=== PATIENT | female | born 1965 | race African-American/Black ===

== ENCOUNTER 2016-06-04 09:35 | Observation (INO) | payer OTHER ==
[~2016-06-04] VITALS: Ht 154.9 cm; Wt 65.0 kg
[~2016-06-04 09:35] MED LIST: ALLE24TA PO; ASPI325T PO; BUPR100CR PO; XANA0.5T PO
[2016-06-04 09:44] VITALS: BP 105/55; PULSE 85; RESP 20; TEMP 98.2
[2016-06-04 09:45] VITALS: O2SAT 99
[2016-06-04] MEDS ORDERED: BUPR100CR PO (09:47)
[2016-06-04] MEDS ORDERED: ALPR.5 PO (09:47)
[2016-06-04] MEDS ORDERED: SODIUM CHLORIDE 0.9% FLUSH 10 ML FLUSH IVF PRN (10:00)
[2016-06-04 10:05] LABS: AUTOMATED NEUTROPHIL # 5.8 TH/MM3 (1.8-7.7); BASOPHIL % 0.4 % (0.0-2.0); EOSINOPHIL # 0.1 TH/MM3 (0-0.4); EOSINOPHIL % 1.5 % (0.0-4.0); HEMATOCRIT 31.9 % (35.0-46.0); LYMPH % 12.3 % (9.0-44.0); LYMPHOCYTE # 0.9 TH/MM3 (1.0-4.8); MEAN CELL VOLUME 72.8 FL (80.0-100.0); MEAN CORPUSCULAR HEMOGLOBIN 23.2 PG (27.0-34.0); MEAN CORPUSCULAR HGB CONC 31.9 % (32.0-36.0); NEUT % 78.8 % (16.0-70.0); PLATELET COUNT 123 TH/MM3 (150-450); RED BLOOD COUNT 4.38 MIL/MM3 (4.00-5.30); RED CELL DISTRIBUTION WIDTH 17.7 % (11.6-17.2); WHITE BLOOD COUNT 7.4 TH/MM3 (4.0-11.0)
--- NOTE | 2016-06-04 10:13 | PD ---
HPI Chief Complaint: Chest Pain Time Seen by Provider: 10:06 Travel History International Travel<30 days: No Contact w/Intl Traveler<30days: No Traveled to known affect area: No History of Present Illness HPI 50-year-old female with previous history of TIA, presents to the ER today because she states that she started having chest pains which is through the chest on both sides starting last night on his own, worse with deep breaths and movements, currently a 7 out of 10. She has had some mild shortness of breath. She denies any fevers, coughing, or any other symptoms. She denies any injuries. Modifying Factors: None Associated Signs & Symptoms: Chest pain, mild shortness of breath Risk Factors: None PFSH Past Medical History Asthma: Yes Anxiety: Yes Depression: Yes Cardiovascular Problems: Yes Cerebrovascular Accident: Yes Diminished Hearing: No Endocrine: No Genitourinary: No Immune Disorder: No Musculoskeletal: No Neurologic: Yes Psychiatric: Yes Reproductive: No Respiratory: Yes (CHRONIC BRONCHITIS) Immunizations Current: Yes Tetanus Vaccination: > 5 Years ?: Not Tubal Ligation: Yes Past Surgical History Abdominal Surgery: Yes (BOWEL RESECTION DURING HYSTERECTOMY) Appendectomy: Yes Section: Yes (X2) Cholecystectomy: Yes Genitourinary Surgery: Yes (CYSTOSCOPY) Gynecologic Surgery: Yes (LEFT BREAST BIOPSY) Hysterectomy: Yes Joint Replacement: Yes (LEFT HIP REPLACEMENT) Other Surgery: Yes Social History Alcohol Use: Yes (RARELY) Tobacco Use: No Substance Use: No Allergies-Medications (Allergen,Severity, Reaction): Coded Allergies: Contrast Media (Verified Allergy, Severe, hives, 06/04/16) Reported Meds & Prescriptions Reported Meds & Active Scripts Active Aspirin 325 Mg Tab (Aspirin) 325 Mg Tab 325 Mg PO DAILY 0 Days Reported Xanax (Alprazolam) 0.5 Mg Tab 0.5 Mg PO Q6H PRN Wellbutrin SR 12 HR (Bupropion HCl) 100 Mg Tab 100 Mg PO Q12HR Wellbutrin Sr (Bupropion HCl) 100 Mg Tabcr 100 Mg PO BID Xanax 0.5 mg (Alprazolam) Alprazolam 0.5 mg Tab 1 Tab PO Q6H PRN Niharika-D 24 Hour Allergy (Fexofenadine-Pseudoephedrine) 24 Hour Tab 1 Tab PO DAILY Review of Systems Except as stated in HPI: all other systems reviewed are Neg Physical Exam Narrative GENERAL: Well-developed middle age -[place] female patient currently not in acute distress. Awake and oriented 3. SKIN: Focused skin assessment warm/dry. HEAD: Atraumatic. Normocephalic. EYES: Pupils equal and round. No scleral icterus. No injection or drainage. ENT: No nasal bleeding or discharge. Mucous membranes pink and moist. NECK: Trachea midline. No JVD. CARDIOVASCULAR: Regular rate and rhythm. No murmur appreciated. Pulses are present and equal bilaterally. RESPIRATORY: No accessory muscle use. Clear to auscultation. Breath sounds equal bilaterally. No crackles, wheezes, or rhonchi. GASTROINTESTINAL: Abdomen soft, non-tender, nondistended. Hepatic and splenic margins not palpable. MUSCULOSKELETAL: No obvious deformities. No clubbing. No cyanosis. No edema. NEUROLOGICAL: Awake and alert. No obvious cranial nerve deficits. Motor grossly within normal limits. Normal speech. PSYCHIATRIC: Appropriate mood and affect; insight and judgment normal. Data Data Last Documented VS Vital Signs Date Time Temp Pulse Resp B/P Pulse Ox O2 Delivery O2 Flow Rate FiO2 06/04/16 09:45 99 06/04/16 09:44 98.2 85 20 105/55 Orders Electrocardiogram (06/04/16 09:49) Complete Blood Count With Diff (06/04/16 09:49) Basic Metabolic Panel (Bmp) (06/04/16 09:49) Ckmb (Isoenzyme) Profile (06/04/16 09:49) Troponin I (06/04/16 09:49) Chest, Single Ap (06/04/16 09:49) Iv Access Insert/Monitor (06/04/16 09:49) Ecg Monitoring (06/04/16 09:49) Oxygen Administration (06/04/16 09:49) Oximetry (06/04/16 09:49) Comprehensive Metabolic Panel (06/04/16 09:50) B-Type Natriuretic Peptide (06/04/16 09:50) Act Partial Throm Time (Ptt) (06/04/16 09:50) Prothrombin Time / Inr (Pt) (06/04/16 09:50) Electrocardiogram (06/04/16 09:50) Sodium Chloride 0.9% Flush (Ns Flush) (06/04/16 10:00) D-Dimer (06/04/16 10:13) Ventilation & Perfusion Scan (06/04/16 11:16) Labs Laboratory Tests Test 06/04/16 09:50 White Blood Count 7.4 TH/MM3 Red Blood Count 4.38 MIL/MM3 Hemoglobin 10.2 GM/DL Hematocrit 31.9 % Mean Corpuscular Volume 72.8 FL Mean Corpuscular Hemoglobin 23.2 PG Mean Corpuscular Hemoglobin 31.9 % Concent Red Cell Distribution Width 17.7 % Platelet Count 123 TH/MM3 Mean Platelet Volume 9.1 FL Neutrophils (%) (Auto) 78.8 % Lymphocytes (%) (Auto) 12.3 % Monocytes (%) (Auto) 7.0 % Eosinophils (%) (Auto) 1.5 % Basophils (%) (Auto) 0.4 % Neutrophils # (Auto) 5.8 TH/MM3 Lymphocytes # (Auto) 0.9 TH/MM3 Monocytes # (Auto) 0.5 TH/MM3 Eosinophils # (Auto) 0.1 TH/MM3 Basophils # (Auto) 0.0 TH/MM3 CBC Comment AUTO DIFF Differential Comment AUTO DIFF CONFIRMED Acanthocytes OCC Prothrombin Time 10.9 SEC Prothromb Time International 1.0 RATIO Ratio Activated Partial 23.7 SEC Thromboplast Time D-Dimer Quantitative (PE/DVT) 0.87 MG/L FEU Sodium Level 140 MEQ/L Potassium Level 4.1 MEQ/L Chloride Level 106 MEQ/L Carbon Dioxide Level 27.0 MEQ/L Anion Gap 7 MEQ/L Blood Urea Nitrogen 12 MG/DL Creatinine 0.93 MG/DL Estimat Glomerular Filtration 78 ML/MIN Rate Random Glucose 110 MG/DL Calcium Level 8.6 MG/DL Total Creatine Kinase 49 U/L Troponin I LESS THAN 0.02 NG/ML MDM Medical Decision Making Medical Screen Exam Complete: Yes Emergency Medical Condition: Yes Medical Record Reviewed: Yes Interpretation(s) EKG shows NSR, no ST elevation or depression, and no arrhythmias. No significant T-wave inversions. Laboratory Tests Test 06/04/16 09:50 Hemoglobin 10.2 GM/DL (11.6-15.3) Hematocrit 31.9 % (35.0-46.0) Mean Corpuscular Volume 72.8 FL (80.0-100.0) Mean Corpuscular Hemoglobin 23.2 PG (27.0-34.0) Mean Corpuscular Hemoglobin 31.9 % Concent (32.0-36.0) Red Cell Distribution Width 17.7 % (11.6-17.2) Platelet Count 123 TH/MM3 (150-450) Neutrophils (%) (Auto) 78.8 % (16.0-70.0) Lymphocytes # (Auto) 0.9 TH/MM3 (1.0-4.8) Acanthocytes OCC (NORMAL) Activated Partial 23.7 SEC Thromboplast Time (24.3-30.1) D-Dimer Quantitative (PE/DVT) 0.87 MG/L FEU (0.00-0.50) Estimat Glomerular Filtration 78 ML/MIN (>89) Rate Random Glucose 110 MG/DL (74-106) Troponin I LESS THAN 0.02 NG/ML (0.02-0.05) Last 24 hours Impressions Lung Scan-VQ Nuclear Medicine 06/04/16 1116 Signed Impressions: Service Date/Time: Saturday, June 04, 2016 13:02 - CONCLUSION: 1. Low probability of pulmonary embolism Mook Bedoya MD Chest X-Ray 06/04/16 0949 Signed Impressions: Service Date/Time: Saturday, June 04, 2016 10:07 - CONCLUSION: No acute disease. Flaco Monroy MD FACR Differential Diagnosis Chest pains, shortness of breathACS versus dysrhythmias versus costochondritis versus pneumonia versus PE versus CHF Narrative Course EKG and chest x-ray as well as VQ scan did not reveal any signs of acute processes. Cardiac enzymes are negative. Symptoms are fairly atypical of coronary chest pain. However, I am concerned about the left arm discomfort as well and my plan would be to admit the patient for further evaluation of chest pains. Diagnosis Primary Impression: Atypical chest pain Admitting Information Admitting Physician Requests: Admit Venita Guerrero MD Jun 04, 2016 10:13
[2016-06-04 10:14] LABS: APTT (PATIENT) 23.7 SEC (24.3-30.1); HEMO FLAGS AUTO DIFF; PROTHROMBIN TIME - PATIENT 10.9 SEC (9.8-11.6)
[2016-06-04 10:19] LABS: ANION GAP 7 MEQ/L (5-15); BLOOD UREA NITROGEN 12 MG/DL (7-18); CHLORIDE 106 MEQ/L (98-107); GLOMERULAR FILTRATION RATE 78 ML/MIN (>89); POTASSIUM 4.1 MEQ/L (3.5-5.1); SODIUM (NA) 140 MEQ/L (136-145)
[2016-06-04 10:24] LABS: CREATINE KINASE 49 U/L (26-192)
--- NOTE | 2016-06-04 10:24 | RADRPT ---
EXAM DATE/TIME: 06/04/2016 10:07 [facility] COMPARISON: CHEST SINGLE AP, June 10, 2015, 7:13. INDICATIONS : Chest pain MEDICAL HISTORY : None. SURGICAL HISTORY : None. ENCOUNTER: Initial ACUITY: 2 days PAIN SCORE: 4/10 LOCATION: Bilateral chest FINDINGS: A single view of the chest demonstrates the lungs to be symmetrically aerated without evidence of mas s, infiltrate or effusion. The cardiomediastinal contours are unremarkable. Osseous structures are intact. CONCLUSION: No acute disease. Flaco Monroy MD FACR on June 04, 2016 at 10:22 Board Certified Radiologist. This report was verified electronically.
[2016-06-04 10:55] LABS: ACANTHOCYTES OCC (NORMAL); SCAN/DIFF AUTO DIFF CONFIRMED
--- NOTE | 2016-06-04 13:25 | RADRPT ---
EXAM DATE/TIME: 06/04/2016 13:02 [facility] COMPARISON: CHEST SINGLE AP, June 04, 2016, 10:07. INDICATIONS : Shortness of breath with chest pain for one day. DOSE: 8.6 mCi Tc99m MAA IV 0.90 mCi Tc99m DTPA aerosol MEDICAL HISTORY : Sickle cell disease. Asthma. SURGICAL HISTORY : Hysterectomy. Cholecystectomy. section. ENCOUNTER: Initial ACUITY: 1 day PAIN SCALE: 4/10 LOCATION: chest TECHNIQUE: Following five minutes of tidal breathing of DTPA aerosol, planar images of the lungs were performed in eight projections. The patient was then injected with MAA, and eight-view perfusion scan was perf ormed. FINDINGS: There is a homogeneous pattern of aerosol delivery to the periphery of both lungs. No focal ventilat ory defects are seen. The perfusion lung scan demonstrates a homogenous pattern of uptake in both lungs. No segmental or s ubsegmental defects are seen. CONCLUSION: 1. Low probability of pulmonary embolism Mook Bedoya MD on June 04, 2016 at 13:23 Board Certified Radiologist. This report was verified electronically.
[2016-06-04 13:58] LABS: ANION GAP 6 MEQ/L (5-15); AST (GOT) 17 U/L (15-37); BICARBONATE 27.5 MEQ/L (21.0-32.0); BLOOD UREA NITROGEN 12 MG/DL (7-18); CHLORIDE 107 MEQ/L (98-107); GLOMERULAR FILTRATION RATE 79 ML/MIN (>89); POTASSIUM 4.1 MEQ/L (3.5-5.1); SODIUM (NA) 140 MEQ/L (136-145)
[2016-06-04 14:02] LABS: ALKALINE PHOSPHATASE 77 U/L (45-117); ALT (GPT) 18 U/L (10-53); TOTAL BILIRUBIN ADULT 1.6 MG/DL (0.2-1.0)
[2016-06-04] MEDS ORDERED: ONDANSETRON HCL 4 MG/2 ML VIAL IV PRN (15:00)
[2016-06-04] MEDS ORDERED: SODIUM CHLORIDE 0.9% FLUSH 10 ML FLUSH IV FLUSH PRN (15:00)
[2016-06-04] MEDS ORDERED: NITROGLYCERIN 0.4 MG SL 25 TABS/BTL SL PRN (15:00)
[2016-06-04] MEDS ORDERED: ACETAMINOPHEN 500 MG CPLT PO PRN (15:00)
[2016-06-04 17:10] VITALS: BP 135/71; PULSE 76; RESP 20; TEMP 98.3
[2016-06-04] MEDS: MORPHINE SULFATE 4 MG/ML INJ IV PUSH PRN ×2 (17:13→21:02)
[2016-06-04] MEDS: SODIUM CHLORIDE 0.9% FLUSH 10 ML FLUSH IV FLUSH SCH (17:14)
[2016-06-04 18:42] LABS: CREATINE KINASE 34 U/L (26-192)
--- NOTE | 2016-06-04 19:22 | HHI.HP ---
HPI Primary Care Physician Thomas Liang MD Chief Complaint Chest pain History of Present Illness 50-year-old female with history of anxiety, depression, TIA presents to emergency room for further evaluation of generalize chest discomfort. Onset last night at midnight. Location "shoulder to shoulder generalize pain. Characterized as throbbing with "flashes of pain." No associated symptoms of shortness of breath, nausea, or diaphoresis. Hurt to breathe. 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 No known precipitating or relieving factors. Review of Systems General: No fatigue,weakness, fever, chills, or recent illness. Has been in her general state of health. HEENT: No POWER, no vision changes, no nasal congestion or drainage, no dysphasia CV: As stated above. Currently to have chest discomfort. Stating "medications provided in ER have worn out." No palpitations, intermittent leg pain, dizziness RESP: No SOB, cough, wheeze, recent URI GI: No nausea, vomiting, bowel changes, diarrhea, constipation, pain, distention , melena, blood in the stool. No change in appetite, no unintentional weight gain or weight loss : No dysuria, urgency, frequency EXT: No lower leg edema, no paraesthesias MS: No discomfort or change in ROM NEURO: No change in memory, dizziness, difficulty with balance, LOC, motor/ sensory deficits PSYCH: History of anxiety and depression, no suicidal ideation. No situational stress. SKIN: No rashes, no concerning lesions Past Family Social History Allergies: Coded Allergies: Contrast Media (Verified Allergy, Severe, hives, 06/04/16) Past Medical History Anxiety, depression, TIA Past Surgical History Appendectomy, , bowel resection status post "nicking" of her bowel during . Lumpectomy Reported Medications Reported Meds & Active Scripts Active Aspirin 325 Mg Tab (Aspirin) 325 Mg Tab 325 Mg PO DAILY 0 Days Reported Xanax (Alprazolam) 0.5 Mg Tab 0.5 Mg PO Q6H PRN Wellbutrin SR 12 HR (Bupropion HCl) 100 Mg Tab 100 Mg PO Q12HR Wellbutrin Sr (Bupropion HCl) 100 Mg Tabcr 100 Mg PO BID Xanax 0.5 mg (Alprazolam) Alprazolam 0.5 mg Tab 1 Tab PO Q6H PRN Niharika-D 24 Hour Allergy (Fexofenadine-Pseudoephedrine) 24 Hour Tab 1 Tab PO DAILY Active Ordered Medications Current Medications Medications (Trade) Dose Ordered Sig/Abram Route Start Time Stop Time Status Last Admin (NS Flush) 2 ml UNSCH PRN IV FLUSH 06/04/16 15:00 (NS Flush) 2 ml BID IV FLUSH 06/04/16 21:00 06/04/16 17:14 (Tylenol) 500 mg Q4H PRN PO 06/04/16 15:00 (Zofran Inj) 4 mg Q6H PRN IV 06/04/16 15:00 (Nitrostat Sl) 0.4 mg Q5M PRN SL 06/04/16 15:00 (Aspirin) 325 mg DAILY PO 06/05/16 09:00 (Morphine Inj) 4 mg Q3H PRN IV PUSH 06/04/16 17:00 06/04/16 17:13 Family History Noncontributory for early onset cardiovascular disease Social History No known diabetes, hypertension, or hyperlipidemia. Lifelong nonsmoker. Denies any alcohol or illegal drug use. Past cardiac testing No formal past cardiac testing Physical Exam Vital Signs Vital Signs Date Time Temp Pulse Resp B/P Pulse Ox O2 Delivery O2 Flow Rate FiO2 06/04/16 17:10 98.3 76 20 135/71 06/04/16 09:45 99 06/04/16 09:45 99 06/04/16 09:44 98.2 85 20 105/55 Physical Exam GENERAL: Alert WN, WD, NAD, pleasant, female HEAD: NC, AT EYES: Sclera clear, conjunctiva without injection, pupils equal and round ENT: Mucous membranes pink and moist NECK: Supple, no masses, trachea midline CV: RRR, without murmur, rub, gallop, no JVD, S1-S2 no S3-S4. RESP: Clear lungs throughout bilateral, no crackles, wheeze, rhonchi, symmetrical chest rise, nonlabored, able to speak in full sentences ABD: Soft, NT, ND, no masses, positive bowel tones BACK: No CVAT, no scoliosis EXT: Pulses +24, no dependent edema MS: Normal tone 4 extremities, generalize chest discomfort upon palpation, no obvious deformities, full range of motion NEURO: CN II through CN XII grossly intact, motor strength 5/5, gait WNL PSYCH: A+O 3, pleasant affect, appropriate speech, appropriate mood and affect , insight and judgment SKIN: Normal turgor, normal texture, no lesions, no rashes, brisk cap refill, even hair distribution Laboratory Laboratory Tests Test 06/04/16 06/04/16 06/04/16 09:50 17:15 17:25 White Blood Count 7.4 Red Blood Count 4.38 Hemoglobin 10.2 Hematocrit 31.9 Mean Corpuscular Volume 72.8 Mean Corpuscular Hemoglobin 23.2 Mean Corpuscular Hemoglobin 31.9 Concent Red Cell Distribution Width 17.7 Platelet Count 123 Mean Platelet Volume 9.1 Neutrophils (%) (Auto) 78.8 Lymphocytes (%) (Auto) 12.3 Monocytes (%) (Auto) 7.0 Eosinophils (%) (Auto) 1.5 Basophils (%) (Auto) 0.4 Neutrophils # (Auto) 5.8 Lymphocytes # (Auto) 0.9 Monocytes # (Auto) 0.5 Eosinophils # (Auto) 0.1 Basophils # (Auto) 0.0 CBC Comment AUTO DIFF Differential Comment AUTO DIFF CONFIRMED Acanthocytes OCC Prothrombin Time 10.9 Prothromb Time International 1.0 Ratio Activated Partial 23.7 Thromboplast Time D-Dimer Quantitative (PE/DVT) 0.87 Sodium Level 140 Potassium Level 4.1 Chloride Level 107 Carbon Dioxide Level 27.5 Anion Gap 6 Blood Urea Nitrogen 12 Creatinine 0.92 Estimat Glomerular Filtration 79 Rate Random Glucose 106 Calcium Level 8.8 Total Bilirubin 1.6 Aspartate Amino Transf 17 (AST/SGOT) Alanine Aminotransferase 18 (ALT/SGPT) Alkaline Phosphatase 77 Total Creatine Kinase 49 34 Troponin I LESS THAN 0.02 LESS THAN 0.02 B-Type Natriuretic Peptide 13 Total Protein 6.8 Albumin 3.7 Erythrocyte Sedimentation Rate 6 Result Diagram: 06/04/16 0950 06/04/16 0950 Imaging Last Impressions Lung Scan-V Nuclear Medicine 06/04/16 1116 Signed Impressions: Service Date/Time: Saturday, June 04, 2016 13:02 - CONCLUSION: 1. Low probability of pulmonary embolism Mook Bedoya MD Chest X-Ray 06/04/16 0949 Signed Impressions: Service Date/Time: Wednesday, June 04, 2016 10:07 - CONCLUSION: No acute disease. Flaco Monroy MD FACR Course EKG First EKG normal sinus rhythm, normal axis, no ST or T-segment changes Assessment and Plan Assessment and Plan #1 Chest painadmitted to chest pain center. We'll complete 3 sets of EKGs, cardiac enzymes, and monitored overnight. Was seen and evaluated by Dr. Mook Germain. Will rule out and complete exercise stress test in a.m. #2 Musculoskeletal painmorphine when necessary, sedimentation rate #3 Depressioncontinue home meds Nevaeh Camarena [facility] Jun 04, 2016 19:22
[2016-06-04 20:03] VITALS: BP 127/69; PULSE 73; RESP 16; TEMP 97.8; O2SAT 96
--- NOTE | 2016-06-04 20:08 | EKG ---
Date Performed: 06/04/2016 Time Performed: 09:51:00 PTAGE: 50 years EKG: Sinus rhythm NORMAL ECG Since PREVIOUS TRACING ,the patient is no longer tachycardic PREVIOUS TRACIN06/10/2015 06.57 DOCTOR: Radha Perry Interpretating Date/Time 06/04/2016 20:06:46
[2016-06-04] MEDS: buPROPion HCL 100 MG SUSTAINED RELEASE TAB PO SCH (21:02)
[2016-06-04 22:28] LABS: CREATINE KINASE 47 U/L (26-192)
[2016-06-04 23:27] VITALS: BP 127/63; PULSE 92; RESP 18; TEMP 98.6; O2SAT 97
[2016-06-05] MEDS: MORPHINE SULFATE 4 MG/ML INJ IV PUSH PRN (00:59)
[2016-06-05 02:08] VITALS: PULSE 87
[2016-06-05 03:23] VITALS: BP 110/65; PULSE 82; RESP 18; TEMP 98.4; O2SAT 95
[2016-06-05] MEDS ORDERED: KETOROLAC TROMETHAMINE 30 MG/ML (IVP) VIAL IV PUSH ONE (07:45)
[2016-06-05 07:56] VITALS: BP 137/73; PULSE 85; RESP 18; TEMP 97.8; O2SAT 95
[2016-06-05 08:00] VITALS: PULSE 83
[2016-06-05] MEDS: SODIUM CHLORIDE 0.9% FLUSH 10 ML FLUSH IV FLUSH SCH (08:08)
[2016-06-05] MEDS: buPROPion HCL 100 MG SUSTAINED RELEASE TAB PO SCH (08:29)
[2016-06-05] MEDS ORDERED: ASPIRIN 325 MG TAB PO SCH (09:00)
[2016-06-05 09:08] VITALS: RESP 16
--- NOTE | 2016-06-05 11:21 | HHI.DCPOC ---
Discharge Care Plan Diagnosis: (1) Musculoskeletal chest pain (2) Situational stress Goals to Promote Your Health * To prevent worsening of your condition and complications * To maintain your health at the optimal level Directions to Meet Your Goals Take your medications as prescribed Follow your dietary instruction Follow activity as directed Keep your appointments as scheduled Take your immunizations and boosters as scheduled If your symptoms worsen call your PCP, if no PCP go to Urgent Care Center or Emergency Room Smoking is Dangerous to Your Health. Avoid second hand smoke Call the 24-hour hour crisis hotline for domestic abuse at Nevaeh Camarena Jun 05, 2016 11:21
[2016-06-05] MEDS ORDERED: NAPR500 PO (11:39)
--- NOTE | 2016-06-05 14:00 | TR ---
Date Performed: 06/05/2016 Time Performed: 10:43:45 DOCTOR: Radha Perry DRUG LIST: CLINICAL HISTORY: REASON FOR TEST: REASON FOR ENDING: OBSERVATION: CONCLUSION: Hilario protocol completed. Stopped sec to exceeding target heart rate and leg fatigue . Maximum TX=693 Target HR Achieved=87.0% Total Exercise Time=8:[address]=068/70. No reprod ches t discomfort. Rare PVC. No st t sement changes to sugg ischemia. Great exercise tolerance. Normal bp response. Recovery quick and unremarkable. COMMENTS:
--- NOTE | 2016-06-05 14:02 | EKG ---
Date Performed: 06/05/2016 Time Performed: 08:09:14 PTAGE: 50 years EKG: Sinus rhythm NORMAL ECG PREVIOUS TRACING : 06/04/2016 20.41 Since previous tracing, no significant change noted DOCTOR: Radha Perry Interpretating Date/Time 06/05/2016 13:59:48
--- NOTE | 2016-06-05 14:06 | EKG ---
Date Performed: 06/04/2016 Time Performed: 18:26:19 PTAGE: 50 years EKG: Sinus rhythm NORMAL ECG Since PREVIOUS TRACING , no significant change noted PREVIOUS TRACIN06/04/2016 15.37 DOCTOR: Radha Perry Interpretating Date/Time 06/05/2016 14:02:24
--- NOTE | 2016-06-05 14:07 | EKG ---
Date Performed: 06/04/2016 Time Performed: 15:37:12 PTAGE: 50 years EKG: Sinus rhythm NORMAL ECG Since PREVIOUS TRACING , no significant change noted PREVIOUS TRACIN06/04/2016 09.51 DOCTOR: Radha Perry Interpretating Date/Time 06/05/2016 14:04:21
--- NOTE | 2016-06-09 08:18 | EKG ---
Date Performed: 06/04/2016 Time Performed: 20:41:37 PTAGE: 50 years EKG: Sinus rhythm POSSIBLE RIGHT VENTRICULAR CONDUCTION DELAY BORDERLINE ECG INTERPRETATION BASED ON A DEFAULT AGE OF 42 YEARS NO PREVIOUS TRACING DOCTOR: Mook Germain Interpretating Date/Time 06/09/2016 08:16:02
== END 2016-06-05 12:55 | disposition home or self-care (01) ==
LOC: NEPE 09:35 → HSDI 13:59 → NEDA 15:32 → NEDH 18:44 → NEPFCDU 20:11
PROVIDERS: ADMIT Internal Medicine Cardiovascular Disease; ATTEND Internal Medicine Cardiovascular Disease
DX: R07.9 Chest pain, unspecified (principal); R94.31 Abnormal electrocardiogram [ECG] [EKG]; F32.9 Major depressive disorder, single episode, unspecified; J45.909 Unspecified asthma, uncomplicated; Z86.73 Personal history of transient ischemic attack (TIA), and cerebral infarction without residual deficits
CPT/HCPCS: 71010; 78582; 80048; 80053; 82550; 83880; 84484; 85025; 85379; 85610; 85652; 85730; 93005; 93017; 99285; A9540; A9567; G0378; J1885; J2270

== ENCOUNTER 2017-02-05 02:28 | Emergency (ER) | payer OTHER ==
[~2017-02-05] VITALS: Ht 154.9 cm; Wt 68.0 kg
[~2017-02-05 02:28] MED LIST changes: +ALPR.5 PO; +NAPR500 PO
[2017-02-05 02:32] VITALS: BP 174/83; PULSE 126; RESP 13; TEMP 98; O2SAT 99
[2017-02-05] MEDS ORDERED: ACETAMINOPHEN/HYDROcodone 325 MG/5 MG TAB PO ONE (03:00)
[2017-02-05] MEDS ORDERED: KETOROLAC TROMETHAMINE 60 MG/2 ML (IM) VIAL IM ONE (03:00)
--- NOTE | 2017-02-05 03:01 | PD ---
HPI Chief Complaint: Injury Time Seen by Provider: 02:45 Travel History International Travel<30 days: No Contact w/Intl Traveler<30days: No Traveled to known affect area: No History of Present Illness HPI This is a 51-year-old female who presents for evaluation of left shoulder pain. She reports that 5 days ago she was moving. She reports that while moving she developed some discomfort in her left shoulder which worsened at night. She has been sore in her left shoulder throughout the week. Tonight the pain became progressively worse which prompted evaluation. She describes an aching sensation in her left shoulder which is constant, worse with movement. She tried using ibuprofen at home but symptoms persisted. She denies any new trauma. She denies any chest pain, shortness of breath, fevers or chills, open wounds. She has no other complaints. PFSH Past Medical History Asthma: Yes Anxiety: Yes Depression: Yes Heart Rhythm Problems: No Cardiac Catheterization: No Cardiovascular Problems: No High Cholesterol: No Congestive Heart Failure: No Cerebrovascular Accident: Yes Diabetes: No Diminished Hearing: No Endocrine: No Genitourinary: No Immune Disorder: No Implanted Vascular Access Dvce: Yes Musculoskeletal: No Neurologic: Yes Psychiatric: Yes Reproductive: No Respiratory: Yes (CHRONIC BRONCHITIS) Immunizations Current: Yes Tetanus Vaccination: < 5 Years Influenza Vaccination: Yes ?: Not Tubal Ligation: Yes Past Surgical History Abdominal Surgery: Yes (BOWEL RESECTION DURING HYSTERECTOMY) Appendectomy: Yes Section: Yes (X2) Cholecystectomy: Yes Coronary Artery Bypass Graft: No Genitourinary Surgery: Yes (CYSTOSCOPY) Gynecologic Surgery: Yes (LEFT BREAST BIOPSY) Hysterectomy: Yes (parital) Joint Replacement: Yes (LEFT HIP REPLACEMENT) Other Surgery: Yes Social History Alcohol Use: Yes (RARELY) Tobacco Use: No Substance Use: No Allergies-Medications (Allergen,Severity, Reaction): Coded Allergies: diatrizoate meglumine (Unverified Allergy, Severe, hives, 09/23/16) gadobenic acid (Unverified Allergy, Severe, hives, 09/23/16) gadodiamide (Unverified Allergy, Severe, hives, 09/23/16) gadoteridol (Unverified Allergy, Severe, hives, 09/23/16) iodixanol (Unverified Allergy, Severe, hives, 09/23/16) iohexol (Unverified Allergy, Severe, hives, 09/23/16) Reported Meds & Prescriptions Reported Meds & Active Scripts Active Ibuprofen 800 Mg Tab 800 Mg PO Q6HR PRN Tylenol-Codeine #3 (Acetaminophen-Codeine) 300-30 mg Tab 1 Tab PO Q4H PRN Reported Xanax (Alprazolam) 0.5 Mg Tab 0.5 Mg PO Q6H PRN Wellbutrin SR 12 HR (Bupropion HCl) 100 Mg Tab 100 Mg PO Q12HR Review of Systems Except as stated in HPI: all other systems reviewed are Neg Physical Exam Narrative GENERAL: Well-developed well-nourished female who appears anxious and uncomfortable on initial examination. She is tachycardic. SKIN: Warm and dry. Erythema, no puncture or open wounds. HEAD: Atraumatic. Normocephalic. EYES: Pupils equal and round. No scleral icterus. No injection or drainage. ENT: No nasal bleeding or discharge. Mucous membranes pink and moist. NECK: Trachea midline. No JVD. CARDIOVASCULAR: Regular rate and rhythm. No murmur appreciated. RESPIRATORY: No accessory muscle use. Clear to auscultation. Breath sounds equal bilaterally. MUSCULOSKELETAL: No obvious deformities. Generalized tenderness to palpation left shoulder joint. There is limited range of motion wash shoulder secondary to pain. On passive range of motion she has minimal pain with abduction with increased pain with internal and external rotation of the left shoulder. NEUROLOGICAL: Awake and alert. No obvious cranial nerve deficits. Motor grossly within normal limits. Normal speech. Data Data Last Documented VS Vital Signs Date Time Temp Pulse Resp B/P (MAP) Pulse Ox O2 Delivery O2 Flow Rate FiO2 02/05/17 03:55 99 02/05/17 02:32 98.0 13 99 Room Air Orders Orders Ketorolac Inj (Toradol Inj) (02/05/17 03:00) Acetamin-Hydrocod 325-5 Mg ([place] 5-325 (02/05/17 03:00) Support Splint (02/05/17 02:49) Ed Discharge Order (02/05/17 03:55) MDM Medical Decision Making Medical Screen Exam Complete: Yes Emergency Medical Condition: Yes Medical Record Reviewed: Yes Differential Diagnosis Shoulder strain, rotator cuff tear, shoulder impingement, bursitis, tendinitis Narrative Course 51-year-old female whose had gradually worsening pain in left shoulder ever since moving the contents of her home 5 days ago. No new injury. On examination she has limited active range of motion secondary to pain. On passive range of motion she has minimal pain with abduction but increased pain with internal or external rotation passively. There is no acute trauma to suggest fracture or acromioclavicular separation. I suspect rotator cuff strain. The patient does appear quite uncomfortable and has associated tachycardia. Therefore she will be given Lortab, Toradol and her son will come and provide her a ride home. Upon reexamination she feels significantly improved and her heart rate normalized. She is stable for discharge. Diagnosis Primary Impression: Left shoulder strain Additional Instructions: Sling use for the next 2-3 days. Several times a day and perform passive range of motion activities utilizing the left shoulder to prevent stiffness. Pain medication as needed. Do not drive or drink alcohol when taking Tylenol with Codeine. Follow-up with your primary care physician next week and return for any acutely new or worsening symptoms. Med/Other Pt SpecificInfo: Prescription(s) given, Orthopedic Instructions Scripts Ibuprofen (Ibuprofen) 800 Mg Tab 800 MG PO Q6HR Y for PAIN, #40 TAB 0 Refills Prov: Romeo Posada MD 02/05/17 Acetaminophen-Codeine (Tylenol-Codeine #3) 300-30 mg Tab 1 TAB PO Q4H Y for PAIN, #15 TAB 0 Refills Prov: Romeo Posada MD 02/05/17 Disposition: 01 DISCHARGE HOME Condition: Stable Norm [place] Feb 05, 2017 03:01
[2017-02-05] MEDS ORDERED: TYLETAB34 PO (03:53)
[2017-02-05] MEDS ORDERED: IBUP1TAB7 PO (03:53)
[2017-02-05 03:55] VITALS: PULSE 99
== END 2017-02-05 04:05 | disposition home or self-care (01) ==
LOC: NEPD 02:28
DX: S46.912A Strain of unspecified muscle, fascia and tendon at shoulder and upper arm level, left arm, initial encounter (principal); F41.9 Anxiety disorder, unspecified; F32.9 Major depressive disorder, single episode, unspecified; X50.9XXA Other and unspecified overexertion or strenuous movements or postures, initial encounter
CPT/HCPCS: 96372; 99284; J1885